=== PATIENT | female | born 1985 | race Caucasian/White ===

== ENCOUNTER 2016-07-24 16:56 | Emergency (ER) | payer MEDICAID, OTHER ==
[~2016-07-24] VITALS: Ht 167.6 cm; Wt 81.0 kg
[2016-07-24 16:58] VITALS: Ht 167.6 cm; Wt 81.0 kg
--- NOTE | 2016-07-24 18:45 | ERD ---
ER Documentation Chief Complaint Date/Time DATE: 07/24/16 TIME: 18:43 Chief Complaint VAG BLEED X 5 DAYS , 7 WEEKS PREG , PELVIC PAIN , LT FLANK PAIN HPI 30-year-old female who is with one history of ectopic comes in with vaginal bleeding at 7 weeks. This patient has had vaginal bleeding over the last 5 days, it has been light to medium bleeding only. Her last period was on June 09, 2016. She has diffuse pelvic pain, that goes to her lower back as well, and right flank. She denies fevers or chills. ROS All systems reviewed and are negative except as per history of present illness. Medications Home Meds Active Scripts Cephalexin* (Keflex*) 500 Mg Capsule, 500 MG PO TID for 10 Days, CAP Prov:SIMBA MCNEILL PA-C 07/24/16 PMhx/Soc Medical and Surgical Hx: pt denies Medical Hx, pt denies Surgical Hx Smoking Status: Never smoker Physical Exam Vitals Vital Signs Date Time Temp Pulse Resp B/P Pulse Ox O2 Delivery O2 Flow Rate FiO2 07/24/16 20:21 98.8 89 18 130/74 100 Room Air 07/24/16 16:58 98.8 90 18 142/70 100 Physical Exam General: Well-developed, well-nourished. The patient appears in no acute distress. HEENT: Head is normocephalic, atraumatic. No scleral icterus. Neck: Supple. Nontender. Lungs: Clear to auscultation. Normal air movement. Heart: Regular rate and rhythm. S1 and S2 are normal. No murmurs, gallops, or rubs. Abdomen: Soft, nontender, nondistended. Bowel sounds are normoactive. No CVA tenderness Extremities: No clubbing or cyanosis. Normal pulses. Moving extremities x 4. No weakness. Neurologic: Alert and oriented 3. No focal deficits. Skin: Normal turgor. No rash or lesions. Result Diagram: 07/24/16 1839 Results 24 hrs Laboratory Tests Test 07/24/16 18:39 Basophils # 0.110^3/ul Basophils % 0.6% Beta HCG, Quantitative 2361.2mIU/ml Eosinophils # 0.210^3/ul Eosinophils % 1.1% Hematocrit 40.5% Hemoglobin 13.4g/dl Lymphocytes # 2.910^3/ul Lymphocytes % 20.5% Mean Corpuscular Hemoglobin 30.9pg Mean Corpuscular Hemoglobin Concent 33.1g/dl Mean Corpuscular Volume 93.3fl Mean Platelet Volume 10.1fl Monocytes # 0.910^3/ul Monocytes % 6.4% Neutrophils # 10.010^3/ul Neutrophils % 71.0% Nucleated Red Blood Cells # 0.010^3/ul Nucleated Red Blood Cells % 0.0/100WBC Platelet Count 48737^3/UL Red Blood Count 4.3410^6/ul Red Cell Distribution Width 12.6% Urine Bacteria FEW Urine Bilirubin NEGATIVE Urine Clarity CLEAR Urine Color LT. YELLOW Urine Epithelial Cells FEW Urine Glucose NEGATIVE% Urine Hemoglobin 3+ Urine Ketones NEGATIVE Urine Leukocyte Esterase TRACE Urine Microscopic RBC 2-5/HPF Urine Microscopic WBC 10-25/HPF Urine Nitrite NEGATIVE Urine Specific [place] <=1.005 Urine Total Protein NEGATIVE Urine Urobilinogen 0.2 E.U./dL Urine pH 6.5 White Blood Count 14.110^3/ul Current Medications Medications (Trade) Dose Ordered Sig/Kell Route PRN Reason Start Time Stop Time Status Last Admin Dose Admin Ceftriaxone Sodium (Rocephin) 1 gm ONCE ONCE IM 07/24/16 20:00 07/24/16 20:01 DC 07/24/16 20:03 Lidocaine (Xylocaine 1% (Mdv) 20 ml) 2 ml ONCE ONCE IM 07/24/16 20:00 07/24/16 20:01 DC 07/24/16 20:03 PROCEDURE: US OB. CLINICAL INDICATION: Vaginal discharge TECHNIQUE: Transabdominal views of the pelvis are available for review. The patient refused endovaginal imaging. COMPARISON: No prior studies are available for comparison. FINDINGS: The mean gestational sac and measures 7.5 mm. [place]-rump length: 3.1 mm heart rate: 117 beats per minute Ultrasound estimated gestational age: 6 weeks and 6 days Estimated date of delivery: 03/21/2017. The uterus measures 7.2 x 4.8 x 5.1 cm in size. The right ovary measures 3 x 1.6 x 1.6 cm in size in the left ovary measures 3 x 1.6 x 1.4 cm in size. A possible small subchorionic hemorrhage is seen. No ovarian or adnexal mass lesion is seen. There is no free fluid. IMPRESSION: 1. Single live intrauterine with an estimated gestational age of 6 weeks and 6 days. 2. Possible small subchorionic hemorrhage. RPTAT: HPNM Kai Angeles Physician Date Time Electronically viewed and signed by Kai Angeles Physician on 07/24/2016 19 :48 Procedures/MDM 30-year-old female comes in with vaginal bleeding, pelvic pain, and right flank pain. Patient's workup shows a single live intrauterine . No evidence of ectopic , no signs of any acute abdominal process. She does have some radiating right flank pain with evidence of a urinary tract infection and therefore was given Rocephin 1 g IM. She was advised to recheck with her OB in 3-4 days. Keflex, and Tylenol for pain for home. Departure Diagnosis: Primary Impression: Vaginal bleeding in patient at less than 20 weeks gestation Additional Impression: UTI (urinary tract infection) Condition: SIMBA Weiss PA-C Jul 24, 2016 18:44
[2016-07-24 18:51] LABS: ADD SCAN DIFF NO
[2016-07-24 18:53] LABS: BASOPHIL # 0.1 10^3/ul (0.0-0.1); BASOPHILS % 0.6 % (0.0-2.0); EOSINOPHILS # 0.2 10^3/ul (0.0-0.5); EOSINOPHILS % 1.1 % (0.0-7.0); HEMATOCRIT 40.5 % (37.0-47.0); HEMOGLOBIN 13.4 g/dl (12.0-16.0); LYMPHOCYTES # 2.9 10^3/ul (0.8-2.9); LYMPHOCYTES % 20.5 % (15.0-51.0); MEAN CORPUSCULAR HEMOGLOBIN 30.9 pg (29.0-33.0); MEAN CORPUSCULAR HGB CONC 33.1 g/dl (32.0-37.0); MEAN CORPUSCULAR VOLUME 93.3 fl (82.0-101.0); MEAN PLATELET VOLUME 10.1 fl (7.4-10.4); MONOCYTE # 0.9 10^3/ul (0.3-0.9); MONOCYTES % 6.4 % (0.0-11.0); PLATELET COUNT 295 10^3/UL (140-415); RED BLOOD COUNT 4.34 10^6/ul (4.20-5.40); RED CELL DISTRIBUTION WIDTH 12.6 % (11.5-14.5); WHITE BLOOD COUNT 14.1 10^3/ul (4.8-10.8)
[2016-07-24 18:54] LABS: ADD UMIC YES; URINE BILIRUBIN (Dip) NEGATIVE (NEGATIVE); URINE BLOOD (Dip) 3+ (NEGATIVE); URINE COLOR LT. YELLOW (YELLOW); URINE GLUCOSE (Dip) NEGATIVE (NEGATIVE); URINE KETONES (Dip) NEGATIVE (NEGATIVE); URINE LEUKOCYTE ESTERASE (Dip) TRACE (NEGATIVE); URINE NITRITE (Dip) NEGATIVE (NEGATIVE); URINE TOTAL PROTEIN (Dip) NEGATIVE (NEGATIVE); URINE UROBILINOGEN (Dip) 0.2 E.U./dL (0.1-1.0)
[2016-07-24 19:08] LABS: BACTERIA,URINE FEW
--- NOTE | 2016-07-24 19:48 | RADRPT ---
PROCEDURE: US OB. CLINICAL INDICATION: Vaginal discharge TECHNIQUE: Transabdominal views of the pelvis are available for review. The patient refused endova ginal imaging. COMPARISON: No prior studies are available for comparison. FINDINGS: The mean gestational sac and measures 7.5 mm. [place]-rump length:3.1 mm heart rate:117 beats per minute Ultrasound estimated gestational age: 6 weeks and 6 days Estimated date of delivery: 03/21/2017. The uterus measures 7.2 x 4.8 x 5.1 cm in size. The right ovary measures 3 x 1.6 x 1.6 cm in size i n the left ovary measures 3 x 1.6 x 1.4 cm in size. A possible small subchorionic hemorrhage is see n. No ovarian or adnexal mass lesion is seen. There is no free fluid. IMPRESSION: 1. Single live intrauterine with an estimated gestational age of 6 weeks and 6 days. 2. Possible small subchorionic hemorrhage. RPTAT: HPNM Physician Bel Date Time Electronically viewed and signed by Physician Bel on 07/24/2016 19:48 /
[2016-07-24] MEDS ORDERED: NITR-58 PO (19:52)
[2016-07-24] MEDS ORDERED: CEPH-443 PO (19:58)
[2016-07-24] MEDS ORDERED: LIDOCAINE 1% (MDV) 20 ML INJ IM ONE (20:00)
[2016-07-24] MEDS ORDERED: CEFTRIAXONE 1 GM INJ IM ONE (20:00)
[2016-07-24 20:21] VITALS: BP 130/74; PULSE 89; RESP 18; TEMP 98.8
== END 2016-07-24 20:22 | disposition home or self-care (01) ==
LOC: FTE 16:56
DX: O20.9 Hemorrhage in early pregnancy, unspecified (principal); O23.41 Unspecified infection of urinary tract in pregnancy, first trimester; R10.2 Pelvic and perineal pain; Z3A.01 Less than 8 weeks gestation of pregnancy
CPT/HCPCS: 76801; 81001; 84702; 85025; 86900; 86901; 96372; J0696; Z7502; Z7610; 81003

== ENCOUNTER 2016-08-03 15:59 | Emergency (ER) | payer MEDICAID ==
[~2016-08-03] VITALS: Wt 78.2 kg
[~2016-08-03 15:59] MED LIST: CEPH-443 PO
[2016-08-03 17:22] LABS: ADD SCAN DIFF NO
--- NOTE | 2016-08-03 17:29 | ERD ---
ER Documentation Chief Complaint Date/Time DATE: 08/03/16 TIME: 17:28 Chief Complaint VAG BLEED FOR 2 DAYS GETTING WORSE TODAY. MILD CRAMPING. MOD DYSURIA HPI Patient is a 30-year-old female who is 8 weeks by last menstrual. Seen in the ER 2 weeks ago for vaginal bleeding which resolved spontaneously. At the time the patient had an ultrasound showed a showing a live IUP with a small subchorionic myxoma. Bleeding resumed 2 days ago and patient states that she is passing small amount of mucus and/or tissue. The patient had an appointment with Dr. Amin, TRA[employer]IC [employer] OFFICER in a community clinic today. The patient was not examined by Dr. Amin but Dr. Amin was concerned that the patient reported bleeding it was heavier than previous, and so she sent her to the emergency department for further evaluation. Patient reports mild cramping pelvic pain, denies fever or dysuria. On workup 2 weeks ago patient was found to have IUP, has blood type O+. ROS All systems reviewed and are negative except as per history of present illness. Medications Home Meds Active Scripts Cephalexin* (Keflex*) 500 Mg Capsule, 500 MG PO TID for 10 Days, CAP Prov:SIMBA MCNEILL PA-C 07/24/16 Allergies Allergies: Coded Allergies: No Known Allergy (Unverified , 08/03/16) PMhx/Soc Past medical history: None Past surgical history: None Social history: denies alcohol and tobacco Medical and Surgical Hx: pt denies Medical Hx, pt denies Surgical Hx History of Surgery: No Anesthesia Reaction: No Hx Neurological Disorder: No Hx Respiratory Disorders: No Hx Cardiac Disorders: No Hx Psychiatric Problems: No Hx Miscellaneous Medical Probl: No Hx Alcohol Use: No Hx Substance Use: No Hx Tobacco Use: No Smoking Status: Never smoker FmHx Noncontributory Physical Exam Vitals Vital Signs Date Time Temp Pulse Resp B/P Pulse Ox O2 Delivery O2 Flow Rate FiO2 08/03/16 16:03 98.3 88 21 150/71 99 Physical Exam Const: Alert, no acute distress Head: Atraumatic Eyes: Normal Conjunctiva ENT: Normal External Ears, Nose and Mouth. Neck: Full range of motion. Resp: Clear to auscultation bilaterally Cardio: Regular rate and rhythm, no murmurs Abd: Soft, non tender, non distended. Normal bowel sounds REGISTERED CLIENT ASSOCIATE: Small clot in vaginal vault, normal cervix, closed os, no active bleeding , no tissue or membranes noted Skin: No petechiae or rashes Back: No midline or flank tenderness Ext: No cyanosis, or edema Neur: Awake and alert Psych: Normal Mood and Affect Result Diagram: 08/03/16 1713 Results 24 hrs Laboratory Tests Test 08/03/16 17:10 08/03/16 17:13 Urine Bacteria FEW Urine Bilirubin NEGATIVE Urine Clarity CLEAR Urine Color LT. YELLOW Urine Epithelial Cells FEW Urine Glucose NEGATIVE% Urine Hemoglobin 3+ Urine Ketones NEGATIVE Urine Leukocyte Esterase NEGATIVE Urine Microscopic RBC >50/HPF Urine Microscopic WBC 0-2/HPF Urine Nitrite NEGATIVE Urine Specific [place] 1.010 Urine Total Protein NEGATIVE Urine Urobilinogen 0.2 E.U./dL Urine pH 6.0 Basophils # 0.110^3/ul Basophils % 0.6% Beta HCG, Quantitative 670.5mIU/ml Eosinophils # 0.110^3/ul Eosinophils % 0.8% Hematocrit 38.8% Hemoglobin 13.1g/dl Lymphocytes # 3.110^3/ul Lymphocytes % 21.2% Mean Corpuscular Hemoglobin 31.6pg Mean Corpuscular Hemoglobin Concent 33.8g/dl Mean Corpuscular Volume 93.5fl Mean Platelet Volume 9.9fl Monocytes # 0.810^3/ul Monocytes % 5.7% Neutrophils # 10.310^3/ul Neutrophils % 71.4% Nucleated Red Blood Cells # 0.010^3/ul Nucleated Red Blood Cells % 0.0/100WBC Platelet Count 69552^3/UL Red Blood Count 4.1510^6/ul Red Cell Distribution Width 12.4% White Blood Count 14.510^3/ul Procedures/MDM Pelvic US: IMPRESSION: 1. Previously noted intrauterine gestational sac is no longer present. Findings are consistent with recent spontaneous . 2. Otherwise normal pelvic ultrasound. MDM: Patient patient is A1 at 8 weeks gestational age, who presents with 2 days of vaginal bleeding and pelvic cramping. Patient had an ultrasound 2 weeks ago that showed an IUP. IUP is no longer demonstrated on ultrasound. HCG has dropped from 2500 to 600. Findings are consistent with spontaneous that is complete. No signs of hemorrhage, stable hemoglobin, normal vital signs, Rh+. Discussed with Dr. Amin, who will follow up with patient later this week. I discussed options for contraception with the patient. Patient states that she does not desire further pregnancies. Departure Diagnosis: Primary Impression: Complete miscarriage Condition: CINDI Pride Aug 03, 2016 17:29
[2016-08-03 17:31] LABS: ADD UMIC YES; URINE BILIRUBIN (Dip) NEGATIVE (NEGATIVE); URINE BLOOD (Dip) 3+ (NEGATIVE); URINE COLOR LT. YELLOW (YELLOW); URINE GLUCOSE (Dip) NEGATIVE (NEGATIVE); URINE KETONES (Dip) NEGATIVE (NEGATIVE); URINE LEUKOCYTE ESTERASE (Dip) NEGATIVE (NEGATIVE); URINE NITRITE (Dip) NEGATIVE (NEGATIVE); URINE TOTAL PROTEIN (Dip) NEGATIVE (NEGATIVE); URINE UROBILINOGEN (Dip) 0.2 E.U./dL (0.1-1.0)
[2016-08-03 17:34] LABS: BASOPHIL # 0.1 10^3/ul (0.0-0.1); BASOPHILS % 0.6 % (0.0-2.0); EOSINOPHILS # 0.1 10^3/ul (0.0-0.5); EOSINOPHILS % 0.8 % (0.0-7.0); HEMATOCRIT 38.8 % (37.0-47.0); HEMOGLOBIN 13.1 g/dl (12.0-16.0); LYMPHOCYTES # 3.1 10^3/ul (0.8-2.9); LYMPHOCYTES % 21.2 % (15.0-51.0); MEAN CORPUSCULAR HEMOGLOBIN 31.6 pg (29.0-33.0); MEAN CORPUSCULAR HGB CONC 33.8 g/dl (32.0-37.0); MEAN CORPUSCULAR VOLUME 93.5 fl (82.0-101.0); MEAN PLATELET VOLUME 9.9 fl (7.4-10.4); MONOCYTE # 0.8 10^3/ul (0.3-0.9); MONOCYTES % 5.7 % (0.0-11.0); NEUTROPHIL # 10.3 10^3/ul (1.6-7.5); NEUTROPHILS % 71.4 % (39.0-77.0); PLATELET COUNT 321 10^3/UL (140-415); RED BLOOD COUNT 4.15 10^6/ul (4.20-5.40); RED CELL DISTRIBUTION WIDTH 12.4 % (11.5-14.5); WHITE BLOOD COUNT 14.5 10^3/ul (4.8-10.8)
--- NOTE | 2016-08-03 17:34 | RADRPT ---
PROCEDURE: OB Ultrasound. CLINICAL INDICATION: Positive test. Vaginal bleeding. TECHNIQUE: Ultrasound of the pelvis was performed with transabdominal and transvaginal sonography in the axial and sagittal planes. COMPARISON: OB ultrasound dated 07/24/2016 which demonstrated a single live intrauterine gestation of 6 weeks 6 days and a possible small subchorionic hemorrhage. FINDINGS: The previously noted intrauterine gestational sac is no longer present. The endometrium is normal w ith a thickness of 7 mm. The right ovary appears normal measuring 3.4 x 2.3 x 2.2 cm. The left ovary appears normal measuring 3.9 x 2.1 x 2.5 cm. Color Doppler and pulsed Doppler sonography demonstrate normal flow to the ovaries. There is no other pelvic mass or free fluid. IMPRESSION: 1. Previously noted intrauterine gestational sac is no longer present. Findings are consistent wit h recent spontaneous . 2. Otherwise normal pelvic ultrasound. RPTAT: QQ .Wolf Davis MD, MD Date Time Electronically viewed and signed by .Wolf Davis MD, on 08/03/2016 17:34 .R/
[2016-08-03 17:37] LABS: BACTERIA,URINE FEW; URINE RBCS >50 /HPF (0)
[2016-08-03 18:36] VITALS: BP 132/66; PULSE 78; RESP 20; TEMP 98.2
== END 2016-08-03 18:38 | disposition home or self-care (01) ==
LOC: FTE 15:59
DX: O03.9 Complete or unspecified spontaneous abortion without complication (principal); R10.2 Pelvic and perineal pain
CPT/HCPCS: 36415; 76801; 76817; 81001; 84702; 85025; Z7502; 81003